=== PATIENT | male | born 1975 | race Caucasian/White ===

== ENCOUNTER 2016-10-26 23:14 | Emergency (ER) | payer OTHER ==
--- NOTE | 2016-10-26 23:55 | ED CLINICAL REPORT ---
Clinical Report - Physicians/Mid Levels [facility] [address] [place] [address] 10/26/2016 23:14 Patient: MICHELLE HILLIARD Time Seen: 23:43. Arrived- By private vehicle. Historian- patient. HISTORY OF PRESENT ILLNESS Chief Complaint: LESION and TENDER AREA. This started about 3 days ago and is still present. It was gradual in onset and has been waxing/waning. It is described as painful. It has been located on the face (upper lip - left side). No cause has been identified. Similar symptoms previously: Recent medical care: Not recently seen/assessed. REVIEW OF SYSTEMS No fever, chills, sore throat, cough or difficulty breathing. No headache, chest pain, abdominal pain, nausea or diarrhea. No difficulty with urination or vomiting. He has had joint pain (chronic back pain). PAST HISTORY PCP: Dr Hermosillo Problems: Contusion. Fall. Back Injury. Intervertebral Disc Disease. Chronic Back Pain requiring chronic opiate use. Chest Pain. Surgeries: Appendectomy. Dental Surgery. Shoulder Surgery. Medications: OxyCODONE HCl Oral (Tablet 15 mg) 1 tablet, 2x a day. Allergies: IV Contrast. SOCIAL HISTORY Smoker- current status unknown. Alcohol use; consumes one beer a day. History of drug use: marijuana. Residence: [place]. ADDITIONAL NOTES The nursing notes have been reviewed. PHYSICAL EXAM Vital Signs: 10/26/2016 23:20 BP: 138/97. HR: 95. RR: 18. O2 saturation: 100%. Temp: 97.9 F. Pain level now: 9/10. Appearance: Alert. Oriented X3. Anxious. Patient in moderate distress. ENT: No dental injury. No intraoral injury. Gums normal. Lips abnormal. Pharynx normal. No dental tenderness. Neck: Neck supple. CVS: Normal heart rate and rhythm. Heart sounds normal. Respiratory: No respiratory distress. Breath sounds normal. Abdomen: Nontender. No organomegaly. Skin: No cyanosis. Skin warm and dry. No pallor. Skin not cool on palpation. No diaphoresis. Medium tender indurated area with cellulitis to the face (upper lip swelling). No fluctuance, pointing or drainage. Extremities: Normal external inspection. Extremities nontender. Neuro: Oriented X 3. No motor deficit. LABS, X-RAYS, AND EKG Pulse Oximetry: 10/26/2016 23:20 O2 saturation: 100%. (FIO2 - room air). Interpretation: normal. PROGRESS AND PROCEDURES Course of Care: Ancef 2gm IM given. Bactrim DS 2 tabs PO. Dilaudid 2 mg with Phenergan 25 mg IM given. Patient is stable. Physical exam findings are improved. Symptoms much better. 10/27/2016 00:36 BP: 143/81. HR: 89. RR: 18. O2 saturation: 98%. Pain level now: 08/28. Currently does not appear amenable to I&D. I will begin antibiotics now and he will need close out pt follow up - he reports that he has good access to care through the [facility]. No systemic symptoms or fever or airway issues now. Patient/family counseled. Old ED records reviewed. Disposition: Discharged. Condition: stable and improved. CLINICAL IMPRESSION Cellulitis of the upper lip. Chronic substance abuse- tobacco (cigarettes), marijuana with anxiety. INSTRUCTIONS Do not work for three days. Drink plenty of fluids. Do not smoke. Seek medical help to quit smoking. No alcohol until released. (You may take your oxycodone as needed, as directed for severe pain. It is very important you follow up closely with your doctor to assure you are improving). Warnings: Further evaluation is necessary. It is very important to follow up with a physician. SEDATIVE MEDICATION: You were given sedative medication during your visit. Do not drive or operate dangerous machinery. CONTROLLED SUBSTANCE WARNINGS. GENERAL WARNINGS: Return or contact your physician immediately if your condition worsens or changes unexpectedly, if not improving as expected, or if other problems arise. Your Current Medications: CONTINUE TAKING THE FOLLOWING MEDICATIONS: OxyCODONE HCl Oral : Tablet 15 mg, 1 tablet 2x a day. Prescription Medications: Bactrim DS 800 mg / 160 mg: take 2 tablets orally every 12 hours. No refill. Substitution is permissible. Clindamycin 300 mg: take 1 capsule orally every 6 hours for 7 days. No refills. OTC Medications: Acetaminophen (available over the counter): take according to label instructions. Motrin (available over the counter): take according to label instructions. Follow-up: Follow up with your doctor [facility] tomorrow. (Electronically signed by Demetri Paulino DO 10/27/2016 2:06)
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
--- NOTE | 2016-10-26 23:55 | ED ORDER SUMMARY ---
..... Patient: MICHELLE HILLIARD OrderSheet [facility] VisitID: [id number] [address] [place] [address] 41y, M Registration Date/Time: 10/26/2016 ORDER SHEET Weight: 78.9 kg (stated) Allergies: IV Contrast GENERAL ORDERS: MEDICATION ORDERS: Ancef IM 2 gm (NOW) (23:49 10/26/2016 [facility]) (Ack 23:50 CBradburn R.N.) (0:12 CBradburn R.N.) Bactrim DS PO (Tablet 800-160 mg) 2 tabs (NOW) (23:49 10/26/2016 [facility]) (Ack 23:50 CBradburn R.N.) (0:13 CBradburn R.N.) Dilaudid IM 2 mg (HIGH ALERT MEDICATION, NOW) (23:49 10/26/2016 [facility]) (Ack 23:50 CBradburn R.N.) (0:13 CBradburn R.N.) Phenergan IM 25 mg (HIGH ALERT MEDICATION, NOW) (23:49 10/26/2016 [facility]) (Ack 23:50 CBradburn R.N.) (0:14 CBradburn R.N.) IV FLUIDS: ORDER SHEET NOTES: [Electronically signed by Laury Carson R.N. (00:38 10/27/2016)] [Electronically signed by Demetri Paulino DO (02:06 10/27/2016)] [Electronically locked/signed by Laury Carson R.N. (00:38 10/27/2016)]
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
--- NOTE | 2016-10-26 23:55 | ED ORDER SUMMARY ---
..... Patient: MICHELLE HILLIARD OrderSheet [facility] VisitID: [id number] [address] [place] [address] 41y, M Registration Date/Time: 10/26/2016 ORDER SHEET Weight: 78.9 kg (stated) Allergies: IV Contrast GENERAL ORDERS: MEDICATION ORDERS: Ancef IM 2 gm (NOW) (23:49 10/26/2016 [facility]) (Ack 23:50 CBradburn R.N.) (0:12 CBradburn R.N.) Bactrim DS PO (Tablet 800-160 mg) 2 tabs (NOW) (23:49 10/26/2016 [facility]) (Ack 23:50 CBradburn R.N.) (0:13 CBradburn R.N.) Dilaudid IM 2 mg (HIGH ALERT MEDICATION, NOW) (23:49 10/26/2016 [facility]) (Ack 23:50 CBradburn R.N.) (0:13 CBradburn R.N.) Phenergan IM 25 mg (HIGH ALERT MEDICATION, NOW) (23:49 10/26/2016 [facility]) (Ack 23:50 CBradburn R.N.) (0:14 CBradburn R.N.) IV FLUIDS: ORDER SHEET NOTES: [Electronically signed by Laury Carson R.N. (00:38 10/27/2016)] [Electronically signed by Demetri Paulino DO (02:06 10/27/2016)] [Electronically locked/signed by Laury Carson R.N. (00:38 10/27/2016)]
--- NOTE | 2016-10-27 02:07 | ED DISCHARGE INSTRUCTIONS ---
Patient: MICHELLE HILLIARD General Instructions [facility] VisitID: [id number] [place] [address] 41y, M Registration Date/Time: 10/26/2016 Cellulitis of the upper lip. Chronic substance abuse- tobacco (cigarettes), marijuana with anxiety. INSTRUCTIONS Do not work for three days. Drink plenty of fluids. Do not smoke. Seek medical help to quit smoking. No alcohol until released. (You may take your oxycodone as needed, as directed for severe pain. It is very important you follow up closely with your doctor to assure you are improving). Warnings: Further evaluation is necessary. It is very important to follow up with a physician. SEDATIVE MEDICATION: You were given sedative medication during your visit. Do not drive or operate dangerous machinery. CONTROLLED SUBSTANCE WARNINGS. GENERAL WARNINGS: Return or contact your physician immediately if your condition worsens or changes unexpectedly, if not improving as expected, or if other problems arise. Your Current Medications: CONTINUE TAKING THE FOLLOWING MEDICATIONS: OxyCODONE HCl Oral : Tablet 15 mg, 1 tablet 2x a day. Prescription Medications: Bactrim DS 800 mg / 160 mg: take 2 tablets orally every 12 hours. No refill. Substitution is permissible. Clindamycin 300 mg: take 1 capsule orally every 6 hours for 7 days. No refills. OTC Medications: Acetaminophen (available over the counter): take according to label instructions. Motrin (available over the counter): take according to label instructions. Follow-up: Follow up with your doctor [facility] tomorrow. ADDITIONAL INFORMATION Facial Cellulitis You have an infection of the skin known as cellulitis. This usually starts with a scrape, cut or insect bite which becomes infected. It may also occur from an infected oil gland (pimple) or hair follicle. This can be a serious condition and must be watched closely to be sure the infection is not spreading. With antibiotic treatment, the size of the red area will gradually shrink in size until the skin returns to normal. This will take 7-10 days. The red area should never increase in size once the antibiotic medicine has been started. Occasionally, an infection will be resistant to one antibiotic and another one will have to be used. Home Care: 1) Take all of the antibiotic medicine exactly as prescribed until it is gone. Be careful not to miss any doses, especially during the first few days. 2) A cool compress (face cloth soaked in cool water) applied to the face may help with the swelling and pain. 3) You may use acetaminophen (Tylenol) or ibuprofen (Motrin, Advil) to control pain, unless another medicine was prescribed. [ NOTE : If you have chronic liver or kidney disease or ever had a stomach ulcer or GI bleeding, talk with your doctor before using these medicines.] (Aspirin should never be used in anyone under 18 years of age who is ill with a fever. It may cause severe liver damage.) Follow Up with your doctor or this facility as directed. Check the infected area daily for the warning signs listed below. Get Prompt Medical Attention if any of the following occur: -- Increasing area of redness, swelling or pain -- Pus or fluid drainage from the skin or the eye -- Fever of 100.5 F (38 C) oral or 101.5 F (38.6 C) rectal for more than two days on antibiotics -- Eyelid swells shut -- Increasing headache or neck pain -- Unusual drowsiness or confusion -- Convulsion (seizure) Marijuana Abuse Marijuana is the most widely used illegal drug in the [place]. It is called by various names such as pot, weed, blunts, grass, reefer, ganja, hash, hashish. It is usually smoked but can be mixed with foods or brewed as a tea. It is sometimes sold with PCP (Sahil Dust) or amphetamine mixed in it. These drugs can cause other harmful side effects. Marijuana can cause the following effects: Changes in mood (stimulated, happy, drowsy, depressed, paranoid) Hallucinations Increased heart rate and blood pressure Increased appetite Time distortion, difficulty concentrating, impaired memory Lung damage (similar to cigarettes with chronic cough, wheezing, frequent colds and bronchitis) You can become psychologically dependent on marijuana. That means the craving to use the drug is emotional or psychological rather than due to physical withdrawal. Is Marijuana Running Your Life? Here are some of the signs: Relying on marijuana to feel good, forget problems, deal with stress or to relax Wanting to be alone most of the time or only with others who use drugs Losing interest in things that used to be important Changes in school or job performance or attendance Spending a lot of time thinking about how to get marijuana Stealing or selling your things so you can buy marijuana Unable to stop using even though you may want to quit Increasing anxiety, anger,or depression Sleeping too much, changes in eating habits (weight loss or gain) Needing to use more to get the same effect Home Care Once you have become addicted to any drug, quitting is hard to do. Most people find they can't quit without help. So, dont try to do this alone. Talk to someone you trust who can support you. Seek professional help. Avoid people and places where drugs are used. That only increases the temptation to use. Follow Up with your doctor or as advised by our staff. For more information or a referral to a treatment center in your area, contact: Your local mental health center or the National Alcohol and Substance Abuse Information Center (177)-272-2441 www.addictioncare[employer].com National [place] on Alcoholism and Drug Dependence 373-531-HBEO www.ncadd.org Marijuana Anonymous 732-958-1634 www.marijuana-anonymous.org Get Prompt Medical Attention if any of the following occur: You feel extreme depression, fear, anxiety, or anger toward yourself or others You feel out of control You feel that you may try to harm yourself or another How To Quit Smoking Smoking is one of the hardest habits to break. About half of all those who have ever smoked have been able to quit, and most of those (about 70%) who still smoke want to quit. Here are some of the best ways to stop smoking. Keep Trying: It takes most smokers about 8 tries before they are finally able to fully quit. So, the more often you try and fail, the better your chance of quitting the next time! So, don't give up! Go Cold [place]: Most ex-smokers quit cold turkey. Trying to cut back gradually doesn't seem to work as well, perhaps because it continues the smoking habit. Also, it is possible to fool yourself by inhaling more while smoking fewer cigarettes. This results in the same amount of nicotine in your body! Get Support: Support programs can make an important difference, especially for the heavy smoker. These groups offer lectures, methods to change your behavior and peer support. Call the free national Quitline for more information. 840-ETTR-CCR (368-733-5921). Low-cost or free programs are offered by many hospitals, local chapters of the [place] [employer] (294-233-9894) and the [place] [employer] (311-948-2689). Support at home is important too. Non-smokers can help by offering praise and encouragement. If the smoker fails to quit, encourage them to try again! Akkp-Gtu-Rsuihwe Medicines: For those who can't quit on their own, Nicotine Replacement Therapy (NRT) may make quitting much easier. Certain aids such as the nicotine patch, gum and lozenge are available without a prescription. However, it is best to use these under the guidance of your doctor. The skin patch provides a steady supply of nicotine to the body. Nicotine gum and lozenge gives temporary bursts of low levels of nicotine. Both methods take the edge off the craving for cigarettes. WARNING: If you feel symptoms of nicotine overdose, such as nausea, vomiting, dizziness, weakness, or fast heartbeat, stop using these and see your doctor. Prescription Medicines: After evaluating your smoking patterns and prior attempts at quitting, your doctor may offer a prescription medicine such as bupropion (Zyban, Wellbutrin), varenicline (Chantix, Champix), a niocotine inhaler or nasal spray. Each has its unique advantage and side effects which your doctor can review with you. Health Benefits Of Quitting: The benefits of quitting start right away and keep improving the longer you go without smokin minutes: blood pressure and pulse return to normal 8 hours: oxygen levels return to normal 2 days: ability to smell and taste begins to improve as damaged nerves start to regrow 2-3 weeks: circulation and lung function improves 1-9 months: decreased cough, congestion and shortness of breath; less tired 1 year: risk of heart attack decreases by half 5 years: risk of lung cancer decreases by half; risk of stroke becomes the same as a non-smoker For information about how to quit smoking, visit the following links: National Cancer [place] , Clearing the Air, Quit Smoking Today - an online booklet. http://www.smokefree.gov/pubs/clearing_the_air.pdf Smokefree.gov http://smokefree.gov/ QuitNet http://www.quitnet.com/ Sulfamethoxazole, Trimethoprim Oral tablet What is this medicine? SULFAMETHOXAZOLE; TRIMETHOPRIM or SMX-TMP (suhl fuh meth OK vinny zohl; trye METH oh prim) is a combination of a sulfonamide antibiotic and a second antibiotic, trimethoprim. It is used to treat or prevent certain kinds of bacterial infections. It will not work for colds, flu, or other viral infections. How should I use this medicine? Take this medicine by mouth with a full glass of water. Follow the directions on the prescription label. Take your medicine at regular intervals. Do not take it more often than directed. Do not skip doses or stop your medicine early. Talk to your bridge gang worker regarding the use of this medicine in children. Special care may be needed. This medicine has been used in children as young as 2 months of age. What side effects may I notice from receiving this medicine? Side effects that you should report to your doctor or health healthcare network consultant as soon as possible: allergic reactions like skin rash or hives, swelling of the face, lips, or tongue breathing problems fever or chills, sore throat irregular heartbeat, chest pain joint or muscle pain pain or difficulty passing urine red pinpoint spots on skin redness, blistering, peeling or loosening of the skin, including inside the mouth unusual bleeding or bruising unusually weak or tired yellowing of the eyes or skin Side effects that usually do not require medical attention (report to your doctor or health healthcare network consultant if they continue or are bothersome): diarrhea dizziness headache loss of appetite nausea, vomiting nervousness What may interact with this medicine? Do not take this medicine with any of the following medications: aminobenzoate potassium dofetilide metronidazole This medicine may also interact with the following medications: ROSALIO inhibitors like benazepril, enalapril, lisinopril, and ramipril cyclosporine digoxin diuretics indomethacin medicines for diabetes methenamine methotrexate phenytoin potassium supplements pyrimethamine sulfinpyrazone tricyclic antidepressants warfarin What if I miss a dose? If you miss a dose, take it as soon as you can. If it is almost time for your next dose, take only that dose. Do not take double or extra doses. Where should I keep my medicine? Keep out of the reach of children. Store at room temperature between 20 to 25 degrees C (68 to 77 degrees F). Protect from light. Throw away any unused medicine after the expiration date. What should I tell my health care provider before I take this medicine? They need to know if you have any of these conditions: anemia asthma being treated with anticonvulsants if you frequently drink alcohol containing drinks kidney disease liver disease low level of folic acid or [id number] dehydrogenase poor nutrition or malabsorption porphyria severe allergies thyroid disorder an unusual or allergic reaction to sulfamethoxazole, trimethoprim, sulfa drugs, other medicines, foods, dyes, or preservatives or trying to get breast-feeding What should I watch for while using this medicine? Tell your doctor or health healthcare network consultant if your symptoms do not improve. Drink several glasses of water a day to reduce the risk of kidney problems. Do not treat diarrhea with over the counter products. Contact your doctor if you have diarrhea that lasts more than 2 days or if it is severe and watery. This medicine can make you more sensitive to the sun. Keep out of the sun. If you cannot avoid being in the sun, wear protective clothing and use a sunscreen. Do not use sun lamps or tanning beds/booths. Acetaminophen Oral tablet What is this medicine? ACETAMINOPHEN (a set a PAVAN alonzo fen) is a pain reliever. It is used to treat mild pain and fever. How should I use this medicine? Take this medicine by mouth with a glass of water. Follow the directions on the package or prescription label. Take your medicine at regular intervals. Do not take your medicine more often than directed. Talk to your bridge gang worker regarding the use of this medicine in children. While this drug may be prescribed for children as young as 6 years of age for selected conditions, precautions do apply. What side effects may I notice from receiving this medicine? Side effects that you should report to your doctor or health healthcare network consultant as soon as possible: allergic reactions like skin rash, itching or hives, swelling of the face, lips, or tongue breathing problems fever or sore throat redness, blistering, peeling or loosening of the skin, including inside the mouth trouble passing urine or change in the amount of urine unusual bleeding or bruising unusually weak or tired yellowing of the eyes or skin Side effects that usually do not require medical attention (report to your doctor or health healthcare network consultant if they continue or are bothersome): headache nausea, stomach upset What may interact with this medicine? alcohol imatinib isoniazid other medicines with acetaminophen What if I miss a dose? If you miss a dose, take it as soon as you can. If it is almost time for your next dose, take only that dose. Do not take double or extra doses. Where should I keep my medicine? Keep out of reach of children. Store at room temperature between 20 and 25 degrees C (68 and 77 degrees F). Protect from moisture and heat. Throw away any unused medicine after the expiration date. What should I tell my health care provider before I take this medicine? They need to know if you have any of these conditions: if you frequently drink alcohol containing drinks liver disease an unusual or allergic reaction to acetaminophen, other medicines, foods, dyes or preservatives or trying to get breast-feeding What should I watch for while using this medicine? Tell your doctor or health healthcare network consultant if the pain lasts more than 10 days (5 days for children), if it gets worse, or if there is a new or different kind of pain. Also, check with your doctor if a fever lasts for more than 3 days. Do not take other medicines that contain acetaminophen with this medicine. Always read labels carefully. If you have questions, ask your doctor or pharmacist. If you take too much acetaminophen get medical help right away. Too much acetaminophen can be very dangerous and cause liver damage. Even if you do not have symptoms, it is important to get help right away. Ibuprofen Oral tablet What is this medicine? IBUPROFEN (eye BYOO proe fen) is a non-steroidal anti-inflammatory drug (NSAID). It is used for dental pain, fever, headaches or migraines, osteoarthritis, rheumatoid arthritis, or painful monthly periods. It can also relieve minor aches and pains caused by a cold, flu, or sore throat. How should I use this medicine? Take this medicine by mouth with a glass of water. Follow the directions on the prescription label. Take this medicine with food if your stomach gets upset. Try to not lie down for at least 10 minutes after you take the medicine. Take your medicine at regular intervals. Do not take your medicine more often than directed. A special MedGuide will be given to you by the pharmacist with each prescription and refill. Be sure to read this information carefully each time. Talk to your bridge gang worker regarding the use of this medicine in children. Special care may be needed. What side effects may I notice from receiving this medicine? Side effects that you should report to your doctor or health healthcare network consultant as soon as possible: allergic reactions like skin rash, itching or hives, swelling of the face, lips, or tongue black or bloody stools, blood in the urine or in vomit breathing problems changes in vision chest pain general ill feeling or flu-like symptoms nausea or vomiting redness, blistering, peeling or loosening of the skin, including inside the mouth slurred speech or weakness on one side of the body stomach pain unexplained weight gain or swelling unusually weak or tired yellowing of eyes or skin Side effects that usually do not require medical attention (report to your doctor or health healthcare network consultant if they continue or are bothersome): constipation or diarrhea dizziness gas or heartburn stomach upset What may interact with this medicine? Do not take this medicine with any of the following medications: cidofovir ketorolac methotrexate pemetrexed This medicine may also interact with the following medications: alcohol aspirin diuretics lithium other drugs for inflammation like prednisone warfarin What if I miss a dose? If you miss a dose, take it as soon as you can. If it is almost time for your next dose, take only that dose. Do not take double or extra doses. Where should I keep my medicine? Keep out of the reach of children. Store at room temperature between 15 and 30 degrees C (59 and 86 degrees F). Keep container tightly closed. Throw away any unused medicine after the expiration date. What should I tell my health care provider before I take this medicine? They need to know if you have any of these conditions: asthma cigarette smoker drink more than 3 alcohol containing drinks a day heart disease or circulation problems such as heart failure or leg edema (fluid retention) high blood pressure kidney disease liver disease stomach bleeding or ulcers an unusual or allergic reaction to ibuprofen, aspirin, other NSAIDS, other medicines, foods, dyes, or preservatives or trying to get breast-feeding What should I watch for while using this medicine? Tell your doctor or healthcare professional if your symptoms do not start to get better or if they get worse. This medicine does not prevent heart attack or stroke. In fact, this medicine may increase the chance of a heart attack or stroke. The chance may increase with longer use of this medicine and in people who have heart disease. If you take aspirin to prevent heart attack or stroke, talk with your doctor or health healthcare network consultant. Do not take other medicines that contain aspirin, ibuprofen, or naproxen with this medicine. Side effects such as stomach upset, nausea, or ulcers may be more likely to occur. Many medicines available without a prescription should not be taken with this medicine. This medicine can cause ulcers and bleeding in the stomach and intestines at any time during treatment. Ulcers and bleeding can happen without warning symptoms and can cause . To reduce your risk, do not smoke cigarettes or drink alcohol while you are taking this medicine. You may get drowsy or dizzy. Do not drive, use machinery, or do anything that needs mental alertness until you know how this medicine affects you. Do not stand or sit up quickly, especially if you are an older patient. This reduces the risk of dizzy or fainting spells. This medicine can cause you to bleed more easily. Try to avoid damage to your teeth and gums when you brush or floss your teeth. You have been given the following additional information: Cellulitis, Facial Marijuana Abuse Smoking Cessation Sulfamethoxazole, Trimethoprim Oral tablet Acetaminophen Oral tablet Ibuprofen Oral tablet Do not work for three days. (Electronically signed by Demetri Paulino DO 10/27/2016 2:06)
--- NOTE | 2016-10-27 02:07 | ED DISCHARGE INSTRUCTIONS ---
Patient: MICHELLE HILLIARD General Instructions [facility] VisitID: [id number] [place] [address] 41y, M Registration Date/Time: 10/26/2016 Cellulitis of the upper lip. Chronic substance abuse- tobacco (cigarettes), marijuana with anxiety. INSTRUCTIONS Do not work for three days. Drink plenty of fluids. Do not smoke. Seek medical help to quit smoking. No alcohol until released. (You may take your oxycodone as needed, as directed for severe pain. It is very important you follow up closely with your doctor to assure you are improving). Warnings: Further evaluation is necessary. It is very important to follow up with a physician. SEDATIVE MEDICATION: You were given sedative medication during your visit. Do not drive or operate dangerous machinery. CONTROLLED SUBSTANCE WARNINGS. GENERAL WARNINGS: Return or contact your physician immediately if your condition worsens or changes unexpectedly, if not improving as expected, or if other problems arise. Your Current Medications: CONTINUE TAKING THE FOLLOWING MEDICATIONS: OxyCODONE HCl Oral : Tablet 15 mg, 1 tablet 2x a day. Prescription Medications: Bactrim DS 800 mg / 160 mg: take 2 tablets orally every 12 hours. No refill. Substitution is permissible. Clindamycin 300 mg: take 1 capsule orally every 6 hours for 7 days. No refills. OTC Medications: Acetaminophen (available over the counter): take according to label instructions. Motrin (available over the counter): take according to label instructions. Follow-up: Follow up with your doctor [facility] tomorrow. ADDITIONAL INFORMATION Facial Cellulitis You have an infection of the skin known as cellulitis. This usually starts with a scrape, cut or insect bite which becomes infected. It may also occur from an infected oil gland (pimple) or hair follicle. This can be a serious condition and must be watched closely to be sure the infection is not spreading. With antibiotic treatment, the size of the red area will gradually shrink in size until the skin returns to normal. This will take 7-10 days. The red area should never increase in size once the antibiotic medicine has been started. Occasionally, an infection will be resistant to one antibiotic and another one will have to be used. Home Care: 1) Take all of the antibiotic medicine exactly as prescribed until it is gone. Be careful not to miss any doses, especially during the first few days. 2) A cool compress (face cloth soaked in cool water) applied to the face may help with the swelling and pain. 3) You may use acetaminophen (Tylenol) or ibuprofen (Motrin, Advil) to control pain, unless another medicine was prescribed. [ NOTE : If you have chronic liver or kidney disease or ever had a stomach ulcer or GI bleeding, talk with your doctor before using these medicines.] (Aspirin should never be used in anyone under 18 years of age who is ill with a fever. It may cause severe liver damage.) Follow Up with your doctor or this facility as directed. Check the infected area daily for the warning signs listed below. Get Prompt Medical Attention if any of the following occur: -- Increasing area of redness, swelling or pain -- Pus or fluid drainage from the skin or the eye -- Fever of 100.5 F (38 C) oral or 101.5 F (38.6 C) rectal for more than two days on antibiotics -- Eyelid swells shut -- Increasing headache or neck pain -- Unusual drowsiness or confusion -- Convulsion (seizure) Marijuana Abuse Marijuana is the most widely used illegal drug in the [place]. It is called by various names such as pot, weed, blunts, grass, reefer, ganja, hash, hashish. It is usually smoked but can be mixed with foods or brewed as a tea. It is sometimes sold with PCP (Sahil Dust) or amphetamine mixed in it. These drugs can cause other harmful side effects. Marijuana can cause the following effects: Changes in mood (stimulated, happy, drowsy, depressed, paranoid) Hallucinations Increased heart rate and blood pressure Increased appetite Time distortion, difficulty concentrating, impaired memory Lung damage (similar to cigarettes with chronic cough, wheezing, frequent colds and bronchitis) You can become psychologically dependent on marijuana. That means the craving to use the drug is emotional or psychological rather than due to physical withdrawal. Is Marijuana Running Your Life? Here are some of the signs: Relying on marijuana to feel good, forget problems, deal with stress or to relax Wanting to be alone most of the time or only with others who use drugs Losing interest in things that used to be important Changes in school or job performance or attendance Spending a lot of time thinking about how to get marijuana Stealing or selling your things so you can buy marijuana Unable to stop using even though you may want to quit Increasing anxiety, anger,or depression Sleeping too much, changes in eating habits (weight loss or gain) Needing to use more to get the same effect Home Care Once you have become addicted to any drug, quitting is hard to do. Most people find they can't quit without help. So, dont try to do this alone. Talk to someone you trust who can support you. Seek professional help. Avoid people and places where drugs are used. That only increases the temptation to use. Follow Up with your doctor or as advised by our staff. For more information or a referral to a treatment center in your area, contact: Your local mental health center or the National Alcohol and Substance Abuse Information Center (513)-128-4256 www.addictioncareTutee.com National [place] on Alcoholism and Drug Dependence 554-010-ONKR www.ncadd.org Marijuana Anonymous 558-381-7333 www.marijuana-anonymous.org Get Prompt Medical Attention if any of the following occur: You feel extreme depression, fear, anxiety, or anger toward yourself or others You feel out of control You feel that you may try to harm yourself or another How To Quit Smoking Smoking is one of the hardest habits to break. About half of all those who have ever smoked have been able to quit, and most of those (about 70%) who still smoke want to quit. Here are some of the best ways to stop smoking. Keep Trying: It takes most smokers about 8 tries before they are finally able to fully quit. So, the more often you try and fail, the better your chance of quitting the next time! So, don't give up! Go Cold [place]: Most ex-smokers quit cold turkey. Trying to cut back gradually doesn't seem to work as well, perhaps because it continues the smoking habit. Also, it is possible to fool yourself by inhaling more while smoking fewer cigarettes. This results in the same amount of nicotine in your body! Get Support: Support programs can make an important difference, especially for the heavy smoker. These groups offer lectures, methods to change your behavior and peer support. Call the free national Quitline for more information. 373-VGGQ-IIM (251-814-1331). Low-cost or free programs are offered by many hospitals, local chapters of the [place] [employer] (608-362-5136) and the [place] [employer] (652-416-3289). Support at home is important too. Non-smokers can help by offering praise and encouragement. If the smoker fails to quit, encourage them to try again! Umwh-Oic-Oedvdly Medicines: For those who can't quit on their own, Nicotine Replacement Therapy (NRT) may make quitting much easier. Certain aids such as the nicotine patch, gum and lozenge are available without a prescription. However, it is best to use these under the guidance of your doctor. The skin patch provides a steady supply of nicotine to the body. Nicotine gum and lozenge gives temporary bursts of low levels of nicotine. Both methods take the edge off the craving for cigarettes. WARNING: If you feel symptoms of nicotine overdose, such as nausea, vomiting, dizziness, weakness, or fast heartbeat, stop using these and see your doctor. Prescription Medicines: After evaluating your smoking patterns and prior attempts at quitting, your doctor may offer a prescription medicine such as bupropion (Zyban, Wellbutrin), varenicline (Chantix, Champix), a niocotine inhaler or nasal spray. Each has its unique advantage and side effects which your doctor can review with you. Health Benefits Of Quitting: The benefits of quitting start right away and keep improving the longer you go without smokin minutes: blood pressure and pulse return to normal 8 hours: oxygen levels return to normal 2 days: ability to smell and taste begins to improve as damaged nerves start to regrow 2-3 weeks: circulation and lung function improves 1-9 months: decreased cough, congestion and shortness of breath; less tired 1 year: risk of heart attack decreases by half 5 years: risk of lung cancer decreases by half; risk of stroke becomes the same as a non-smoker For information about how to quit smoking, visit the following links: [place] [employer] [place] , Clearing the Air, Quit Smoking Today - an online booklet. http://www.smokefree.gov/pubs/clearing_the_air.pdf Smokefree.gov http://smokefree.gov/ QuitNet http://www.quitnet.com/ Sulfamethoxazole, Trimethoprim Oral tablet What is this medicine? SULFAMETHOXAZOLE; TRIMETHOPRIM or SMX-TMP (suhl fuh meth OK vinny zohl; trye METH oh prim) is a combination of a sulfonamide antibiotic and a second antibiotic, trimethoprim. It is used to treat or prevent certain kinds of bacterial infections. It will not work for colds, flu, or other viral infections. How should I use this medicine? Take this medicine by mouth with a full glass of water. Follow the directions on the prescription label. Take your medicine at regular intervals. Do not take it more often than directed. Do not skip doses or stop your medicine early. Talk to your metal refiner regarding the use of this medicine in children. Special care may be needed. This medicine has been used in children as young as 2 months of age. What side effects may I notice from receiving this medicine? Side effects that you should report to your doctor or health housekeeper caregiver as soon as possible: allergic reactions like skin rash or hives, swelling of the face, lips, or tongue breathing problems fever or chills, sore throat irregular heartbeat, chest pain joint or muscle pain pain or difficulty passing urine red pinpoint spots on skin redness, blistering, peeling or loosening of the skin, including inside the mouth unusual bleeding or bruising unusually weak or tired yellowing of the eyes or skin Side effects that usually do not require medical attention (report to your doctor or health housekeeper caregiver if they continue or are bothersome): diarrhea dizziness headache loss of appetite nausea, vomiting nervousness What may interact with this medicine? Do not take this medicine with any of the following medications: aminobenzoate potassium dofetilide metronidazole This medicine may also interact with the following medications: ROSALIO inhibitors like benazepril, enalapril, lisinopril, and ramipril cyclosporine digoxin diuretics indomethacin medicines for diabetes methenamine methotrexate phenytoin potassium supplements pyrimethamine sulfinpyrazone tricyclic antidepressants warfarin What if I miss a dose? If you miss a dose, take it as soon as you can. If it is almost time for your next dose, take only that dose. Do not take double or extra doses. Where should I keep my medicine? Keep out of the reach of children. Store at room temperature between 20 to 25 degrees C (68 to 77 degrees F). Protect from light. Throw away any unused medicine after the expiration date. What should I tell my health care provider before I take this medicine? They need to know if you have any of these conditions: anemia asthma being treated with anticonvulsants if you frequently drink alcohol containing drinks kidney disease liver disease low level of folic acid or [id number] dehydrogenase poor nutrition or malabsorption porphyria severe allergies thyroid disorder an unusual or allergic reaction to sulfamethoxazole, trimethoprim, sulfa drugs, other medicines, foods, dyes, or preservatives or trying to get breast-feeding What should I watch for while using this medicine? Tell your doctor or health housekeeper caregiver if your symptoms do not improve. Drink several glasses of water a day to reduce the risk of kidney problems. Do not treat diarrhea with over the counter products. Contact your doctor if you have diarrhea that lasts more than 2 days or if it is severe and watery. This medicine can make you more sensitive to the sun. Keep out of the sun. If you cannot avoid being in the sun, wear protective clothing and use a sunscreen. Do not use sun lamps or tanning beds/booths. Acetaminophen Oral tablet What is this medicine? ACETAMINOPHEN (a set a PAVAN alonzo fen) is a pain reliever. It is used to treat mild pain and fever. How should I use this medicine? Take this medicine by mouth with a glass of water. Follow the directions on the package or prescription label. Take your medicine at regular intervals. Do not take your medicine more often than directed. Talk to your metal refiner regarding the use of this medicine in children. While this drug may be prescribed for children as young as 6 years of age for selected conditions, precautions do apply. What side effects may I notice from receiving this medicine? Side effects that you should report to your doctor or health housekeeper caregiver as soon as possible: allergic reactions like skin rash, itching or hives, swelling of the face, lips, or tongue breathing problems fever or sore throat redness, blistering, peeling or loosening of the skin, including inside the mouth trouble passing urine or change in the amount of urine unusual bleeding or bruising unusually weak or tired yellowing of the eyes or skin Side effects that usually do not require medical attention (report to your doctor or health housekeeper caregiver if they continue or are bothersome): headache nausea, stomach upset What may interact with this medicine? alcohol imatinib isoniazid other medicines with acetaminophen What if I miss a dose? If you miss a dose, take it as soon as you can. If it is almost time for your next dose, take only that dose. Do not take double or extra doses. Where should I keep my medicine? Keep out of reach of children. Store at room temperature between 20 and 25 degrees C (68 and 77 degrees F). Protect from moisture and heat. Throw away any unused medicine after the expiration date. What should I tell my health care provider before I take this medicine? They need to know if you have any of these conditions: if you frequently drink alcohol containing drinks liver disease an unusual or allergic reaction to acetaminophen, other medicines, foods, dyes or preservatives or trying to get breast-feeding What should I watch for while using this medicine? Tell your doctor or health housekeeper caregiver if the pain lasts more than 10 days (5 days for children), if it gets worse, or if there is a new or different kind of pain. Also, check with your doctor if a fever lasts for more than 3 days. Do not take other medicines that contain acetaminophen with this medicine. Always read labels carefully. If you have questions, ask your doctor or pharmacist. If you take too much acetaminophen get medical help right away. Too much acetaminophen can be very dangerous and cause liver damage. Even if you do not have symptoms, it is important to get help right away. Ibuprofen Oral tablet What is this medicine? IBUPROFEN (eye BYOO proe fen) is a non-steroidal anti-inflammatory drug (NSAID). It is used for dental pain, fever, headaches or migraines, osteoarthritis, rheumatoid arthritis, or painful monthly periods. It can also relieve minor aches and pains caused by a cold, flu, or sore throat. How should I use this medicine? Take this medicine by mouth with a glass of water. Follow the directions on the prescription label. Take this medicine with food if your stomach gets upset. Try to not lie down for at least 10 minutes after you take the medicine. Take your medicine at regular intervals. Do not take your medicine more often than directed. A special MedGuide will be given to you by the pharmacist with each prescription and refill. Be sure to read this information carefully each time. Talk to your metal refiner regarding the use of this medicine in children. Special care may be needed. What side effects may I notice from receiving this medicine? Side effects that you should report to your doctor or health housekeeper caregiver as soon as possible: allergic reactions like skin rash, itching or hives, swelling of the face, lips, or tongue black or bloody stools, blood in the urine or in vomit breathing problems changes in vision chest pain general ill feeling or flu-like symptoms nausea or vomiting redness, blistering, peeling or loosening of the skin, including inside the mouth slurred speech or weakness on one side of the body stomach pain unexplained weight gain or swelling unusually weak or tired yellowing of eyes or skin Side effects that usually do not require medical attention (report to your doctor or health housekeeper caregiver if they continue or are bothersome): constipation or diarrhea dizziness gas or heartburn stomach upset What may interact with this medicine? Do not take this medicine with any of the following medications: cidofovir ketorolac methotrexate pemetrexed This medicine may also interact with the following medications: alcohol aspirin diuretics lithium other drugs for inflammation like prednisone warfarin What if I miss a dose? If you miss a dose, take it as soon as you can. If it is almost time for your next dose, take only that dose. Do not take double or extra doses. Where should I keep my medicine? Keep out of the reach of children. Store at room temperature between 15 and 30 degrees C (59 and 86 degrees F). Keep container tightly closed. Throw away any unused medicine after the expiration date. What should I tell my health care provider before I take this medicine? They need to know if you have any of these conditions: asthma cigarette smoker drink more than 3 alcohol containing drinks a day heart disease or circulation problems such as heart failure or leg edema (fluid retention) high blood pressure kidney disease liver disease stomach bleeding or ulcers an unusual or allergic reaction to ibuprofen, aspirin, other NSAIDS, other medicines, foods, dyes, or preservatives or trying to get breast-feeding What should I watch for while using this medicine? Tell your doctor or healthcare professional if your symptoms do not start to get better or if they get worse. This medicine does not prevent heart attack or stroke. In fact, this medicine may increase the chance of a heart attack or stroke. The chance may increase with longer use of this medicine and in people who have heart disease. If you take aspirin to prevent heart attack or stroke, talk with your doctor or health housekeeper caregiver. Do not take other medicines that contain aspirin, ibuprofen, or naproxen with this medicine. Side effects such as stomach upset, nausea, or ulcers may be more likely to occur. Many medicines available without a prescription should not be taken with this medicine. This medicine can cause ulcers and bleeding in the stomach and intestines at any time during treatment. Ulcers and bleeding can happen without warning symptoms and can cause . To reduce your risk, do not smoke cigarettes or drink alcohol while you are taking this medicine. You may get drowsy or dizzy. Do not drive, use machinery, or do anything that needs mental alertness until you know how this medicine affects you. Do not stand or sit up quickly, especially if you are an older patient. This reduces the risk of dizzy or fainting spells. This medicine can cause you to bleed more easily. Try to avoid damage to your teeth and gums when you brush or floss your teeth. You have been given the following additional information: Cellulitis, Facial Marijuana Abuse Smoking Cessation Sulfamethoxazole, Trimethoprim Oral tablet Acetaminophen Oral tablet Ibuprofen Oral tablet Do not work for three days. (Electronically signed by Demetri Paulino DO 10/27/2016 2:06)
--- NOTE | 2016-10-27 02:07 | ED MAR SUMMARY ---
..... Medication Administration Record [facility] [address] [place] [address] Patient: MICHELLE HILLIARD Visit ID: [id number] 41y, M Weight: 78.9 kg Height/Length: 72 in BMI: 23.6 ALLERGIES: IV Contrast Given 23:55 10/26/2016 Laury Carson R.N. Medication Administered: BACTRIM DS [PO] (SULFAMETHOXAZOLE-TMP DS), Dose: 2 tab Tablets PO. Medication Ordered: Bactrim DS PO (Tablet 800-160 mg) 2 tabs (NOW). Given 23:58 10/26/2016 Laury Carson R.N. Medication Administered: DILAUDID [IM] (HYDROMORPHONE HCL PF), Dose: 2 mg IM. Medication Ordered: Dilaudid IM 2 mg (HIGH ALERT MEDICATION, NOW). Given 00:01 10/27/2016 Laury Carson R.N. Medication Administered: PHENERGAN [IM] (PROMETHAZINE HCL), Dose: 25 mg IM. Medication Ordered: Phenergan IM 25 mg (HIGH ALERT MEDICATION, NOW). Given 00:05 10/27/2016 Laury Carson R.N. Medication Administered: ANCEF [IM] (CEFAZOLIN SODIUM), Dose: 2 gm IM. Medication Ordered: Ancef IM 2 gm (NOW).
--- NOTE | 2016-10-27 02:07 | ED MED RECONCILIATION SUMMARY ---
Patient: MICHELLE HILLIARD Medication Reconciliation Report [facility] VisitID: [id number] [address] [place] [address] 41y, M Registration Date/Time: 10/26/2016 Weight: 78.9 kg Height/Length: 72 in. BMI: 23.6 ALLERGIES: IV Contrast The patient's Home Medications are listed below: CONTINUE TAKING THE FOLLOWING MEDICATIONS: OxyCODONE HCl Oral (15 mg) 1 tablet, 2x a day The source(s) of the original Home Medication information: Not obtained. The following Medications were given to the patient in the Emergency Department: Ancef [IM] IM 2 gm, administered: 10/27/2016 12:05:00 AM Bactrim DS [PO] PO 2 tab, administered: 10/26/2016 11:55:00 PM Dilaudid [IM] IM 2 mg, administered: 10/26/2016 11:58:00 PM Phenergan [IM] IM 25 mg, administered: 10/27/2016 12:01:00 AM The following Medications were prescribed to the patient: Acetaminophen (available over the counter): take according to label instructions. -- Demetri Paulino DO Motrin (available over the counter): take according to label instructions. -- Demetri Paulino DO Bactrim DS 800 mg / 160 mg: take 2 tablets orally every 12 hours. No refill. Substitution is permissible. -- Demetri Paulino DO Clindamycin 300 mg: take 1 capsule orally every 6 hours for 7 days. No refills. -- Demetri Paulino DO
--- NOTE | 2016-10-27 02:07 | ED MED RECONCILIATION SUMMARY ---
Patient: MICHELLE HILLIARD Medication Reconciliation Report [facility] VisitID: [id number] [address] [place] [address] 41y, M Registration Date/Time: 10/26/2016 Weight: 78.9 kg Height/Length: 72 in. BMI: 23.6 ALLERGIES: IV Contrast The patient's Home Medications are listed below: CONTINUE TAKING THE FOLLOWING MEDICATIONS: OxyCODONE HCl Oral (15 mg) 1 tablet, 2x a day The source(s) of the original Home Medication information: Not obtained. The following Medications were given to the patient in the Emergency Department: Ancef [IM] IM 2 gm, administered: 10/27/2016 12:05:00 AM Bactrim DS [PO] PO 2 tab, administered: 10/26/2016 11:55:00 PM Dilaudid [IM] IM 2 mg, administered: 10/26/2016 11:58:00 PM Phenergan [IM] IM 25 mg, administered: 10/27/2016 12:01:00 AM The following Medications were prescribed to the patient: Acetaminophen (available over the counter): take according to label instructions. -- Demetri Paulino DO Motrin (available over the counter): take according to label instructions. -- Demetri Paulino DO Bactrim DS 800 mg / 160 mg: take 2 tablets orally every 12 hours. No refill. Substitution is permissible. -- Demetri Paulino DO Clindamycin 300 mg: take 1 capsule orally every 6 hours for 7 days. No refills. -- Demetri Paulino DO
--- NOTE | 2016-10-27 02:07 | ED MAR SUMMARY ---
..... Medication Administration Record [facility] [address] [place] [address] Patient: MICHELLE HILLIARD Visit ID: [id number] 41y, M Weight: 78.9 kg Height/Length: 72 in BMI: 23.6 ALLERGIES: IV Contrast Given 23:55 10/26/2016 Laury Carson R.N. Medication Administered: BACTRIM DS [PO] (SULFAMETHOXAZOLE-TMP DS), Dose: 2 tab Tablets PO. Medication Ordered: Bactrim DS PO (Tablet 800-160 mg) 2 tabs (NOW). Given 23:58 10/26/2016 Laury Carson R.N. Medication Administered: DILAUDID [IM] (HYDROMORPHONE HCL PF), Dose: 2 mg IM. Medication Ordered: Dilaudid IM 2 mg (HIGH ALERT MEDICATION, NOW). Given 00:01 10/27/2016 Laury Carson R.N. Medication Administered: PHENERGAN [IM] (PROMETHAZINE HCL), Dose: 25 mg IM. Medication Ordered: Phenergan IM 25 mg (HIGH ALERT MEDICATION, NOW). Given 00:05 10/27/2016 Laury Carson R.N. Medication Administered: ANCEF [IM] (CEFAZOLIN SODIUM), Dose: 2 gm IM. Medication Ordered: Ancef IM 2 gm (NOW).
== END 2016-10-27 00:33 | disposition home or self-care (01) ==
LOC: ED SRH 23:14
DX: K12.2 Cellulitis and abscess of mouth (principal); F19.10 Other psychoactive substance abuse, uncomplicated; F17.210 Nicotine dependence, cigarettes, uncomplicated; F12.10 Cannabis abuse, uncomplicated; F41.9 Anxiety disorder, unspecified